=== PATIENT | male | born 1970 ===

== ENCOUNTER 2018-08-02 06:20 | Day surgery (SDC) | payer OTHER, BC ==
[~2018-08-02] VITALS: Ht 175.3 cm; Wt 90.8 kg
[~2018-08-02 06:20] MED LIST: METO50ER PO; Metoprolol Tar100 MG PO; SERT50 PO
== END 2018-08-02 11:10 | disposition home or self-care (01) ==
LOC: ORSCSDS 06:20
PROVIDERS: Orthopaedic Surgery
PROC: 0RBK4ZZ Excision of Left Shoulder Joint, Percutaneous Endoscopic Approach (ICD-10-PCS; principal; 2018-08-02 08:30)
PROC: 0LS20ZZ Reposition Left Shoulder Tendon, Open Approach (ICD-10-PCS; principal; 2018-08-02 08:30)
DX: S46.102A Unspecified injury of muscle, fascia and tendon of long head of biceps, left arm, initial encounter (principal); I10 Essential (primary) hypertension; Z79.899 Other long term (current) drug therapy
CPT/HCPCS: C1713; J0171; J0690; J2250; J3010; J7120

== ENCOUNTER 2025-01-01 14:40 | Emergency (ER) | payer BC ==
[~2025-01-01] VITALS: Ht 175.3 cm; Wt 90.7 kg
[2025-01-01 15:19] LABS: BASOPHILS ABSOLUTE AUTO 0.06 K/mm3 (0.00-0.23); BASOPHILS PERCENT AUTO 1 % (0-2); EOSINOPHILS ABSOLUTE AUTO 0.08 K/mm3 (0.00-0.68); EOSINOPHILS PERCENT AUTO 1 % (0-6); Hematocrit 48.3 % (37.0-53.0); Hemoglobin 17.8 g/dL (13.5-17.5); IMMATURE GRAN ABSOLUTE AUTO 0.04 K/mm3 (0.00-0.10); IMMATURE GRAN PERCENT AUTO 1 % (0-1); LYMPHOCYTES ABSOLUTE AUTO 2.38 K/mm3 (0.84-5.20); LYMPHOCYTES PERCENT AUTO 31 % (21-46); MONOCYTES ABSOLUTE AUTO 0.49 K/mm3 (0.16-1.47); MONOCYTES PERCENT AUTO 6 % (4-13); Mean Corpuscular HGB 31.8 pg (26.0-34.0); Mean Corpuscular HGB Conc 36.9 g/dL (31.5-36.5); Mean Corpuscular Volume 86 fL (80-100); Mean Platelet Volume 9.2 fL (9.1-12.4); NEUTROPHILS ABSOLUTE AUTO 4.76 K/mm3 (1.96-9.15); NEUTROPHILS PERCENT AUTO 61 % (41-73); Platelet Count 219 K/mm3 (150-400); RDW Coefficient Variation 11.9 % (11.7-14.2); RDW Standard Deviation 37.4 fL (35.1-46.3); Red Blood Cell Count 5.59 M/mm3 (4.30-5.90); White Blood Cell Count 7.81 K/mm3 (4.00-11.30)
[2025-01-01 15:53] LABS: Magnesium, Blood 2.5 mg/dL (1.6-2.4)
[2025-01-01 16:20] LABS: Thyroid Stimulating Hormone 1.83 uIU/mL (0.360-4.800)
[2025-01-01 16:25] LABS: Albumin, Blood 4.7 g/dL (3.4-5.0); Albumin/Globulin Ratio 1.5 (0.8-1.8); Beta-hydroxybutyrate 26.1 mg/dL (0.2-2.8); Bun/Creatinine Ratio 18.2 (12.0-20.0); Creatinine, Blood 0.71 mg/dL (0.60-1.20); Globulin, Blood 3.2 g/dL (2.2-4.0); Potassium, Blood 4.3 mmol/L (3.5-5.5); Total Protein, Blood 7.9 g/dL (6.4-8.2)
[2025-01-01 16:28] LABS: Source, Urine Clean Catch
[2025-01-01 16:36] LABS: Appearance, Urine Clear (Clear); Bilirubin, Urine Neg (Neg); Blood, Urine Neg (Neg); Color, Urine Pale Yellow (P-Yellow); Glucose Qualitative, Urine 4+ (Neg); Ketones, Urine 4+ (Neg); Leukocyte Esterase, Urine Neg (Neg); Nitrite, Urine Neg (Neg); Protein, Urine Neg (Neg); Specific Gravity, Urine 1.015 (1.003-1.022); Urobilinogen, Urine NORM (Normal)
[2025-01-01] MEDS ORDERED: Lactated Ringer's 1,000 ML IV SCH (16:55)
[2025-01-01] MEDS ORDERED: MetFORMIN HCl 500 mg PO ONE (17:20)
[2025-01-01] MEDS ORDERED: Insulin Human Lispro 100 Units/ML 3ML Syringe SC ONE (17:20)
[2025-01-01 18:45] VITALS: BP 146/110
[2025-01-01 21:00] LABS: Albumin, Blood 3.7 g/dL (3.4-5.0); Albumin/Globulin Ratio 1.2 (0.8-1.8); Bilirubin, Total 1.7 mg/dL (0.1-1.0); Bun/Creatinine Ratio 15.1 (12.0-20.0); Calcium, Blood 8.8 mg/dL (8.5-10.1); Creatinine, Blood 0.73 mg/dL (0.60-1.20); Globulin, Blood 3.1 g/dL (2.2-4.0); Potassium, Blood 3.8 mmol/L (3.5-5.5); Total Protein, Blood 6.8 g/dL (6.4-8.2)
== END 2025-01-01 21:21 | disposition home or self-care (01) ==
LOC: ER 14:40
PROVIDERS: Emergency Medicine
DX: E11.65 Type 2 diabetes mellitus with hyperglycemia (principal); I10 Essential (primary) hypertension; Z79.899 Other long term (current) drug therapy
CPT/HCPCS: 36415; 80053; 81003; 82010; 82947; 83036; 83735; 83930; 84443; 85025; 96360; 99284-25; J1815; J7120